=== PATIENT | female | born 1965 | race Caucasian/White ===

== ENCOUNTER → 2016-11-15 | Outpatient (CLI) | payer BC ==
--- NOTE | 2016-11-15 16:59 | Diagnostic Imaging Report ---
INDICATION: Posterior tibial tendon pain. EXAMINATION: MRI of the left lower extremity, 11/15/2016. FINDINGS: Multiplanar multisequence MRI of the left lower extremity. The extensor mechanism is intact. The plantar fascia unremarkable other than minimal internal high signal. There is a marker along the medial aspect of the proximal foot. Immediately underlying the marker, there is diffuse high signal and enlargement involving the posterior tibial tendon with areas of internal high signal suspicious for internal longitudinal split tear. Surrounding fluid in the sheath is seen. There is no discontinuity distally. The flexor hallucis longus tendon and flexor digitorum longus tendon are intact. The extensor tendon is intact. Peroneal tendons are also intact. The anterior talofibular ligament is intact. The anterior and posterior inferior tibiofibular ligaments appear intact. Deltoid ligament is intact. Small cystic changes adjacent to the cubocalcaneal joint space likely a small ganglion. Osseous structures demonstrate no acute abnormalities. IMPRESSION: 1. Findings along the posterior tibial tendon consistent with diffuse tendinosis and internal likely longitudinal split tear but no discontinuity. Remaining tendons intact. 2. Visualized ligaments intact. 3. Other incidental findings described above. Dictated by: Dictated on workstation # [id number]
--- NOTE | 2016-11-15 17:14 | Diagnostic Imaging Report ---
INDICATION: Posterior tibial tendon pain. EXAMINATION: MRI of the left lower extremity, 11/15/2016. FINDINGS: Multiplanar multisequence MRI of the left lower extremity is performed. A marker is seen along the medial aspect of the midfoot. This overlies the course of the posterior tibial tendon. The visualized aspects of the tendon on this examination are intact. The remaining visualized tendons within the midfoot and forefoot unremarkable. No acute osseous abnormality is appreciated. IMPRESSION: 1. Visualized aspects of the foot on this examination are unremarkable. Please see the separate ankle report. Dictated by: Dictated on workstation # [id number]
== END ==
LOC: RAD 08:35
PROVIDERS: ATTEND Podiatrist
DX: M25.571 Pain in right ankle and joints of right foot (principal)
CPT/HCPCS: 73718; 73721